=== PATIENT | male | born 1965 | race Caucasian/White ===

== ENCOUNTER 2023-04-18 10:31 | Emergency (ER) | payer OTHER ==
[2023-04-18] MEDS ORDERED: Lidocaine 1% 5 ML VIAL INJECT ONE (11:20)
[2023-04-18] MEDS ORDERED: Bacitracin Oint 1 GM U/D Packet TOP ONE (11:20)
== END 2023-04-18 12:03 | disposition home or self-care (01) ==
LOC: JP.ED 10:31
DX: S91.312A Laceration without foreign body, left foot, initial encounter (principal); W22.8XXA Striking against or struck by other objects, initial encounter
CPT/HCPCS: 12002; 99282